=== PATIENT | male | born 1990 | race Two or more races ===

== ENCOUNTER 2016-10-31 12:24 | Inpatient (IN) | payer OTHER ==
[2016-10-31 13:52] VITALS: BMI 21.9
--- NOTE | 2016-10-31 14:22 | HP ---
Admission ROS S - HPI Allergies/Adverse Reactions: Allergies Allergy/AdvReac Type Severity Reaction Status Date / Time tomato Allergy Severe Vomiting Verified 06/25/16 11:24 carrot Allergy Vomiting Verified 08/07/16 14:54 No Known Drug Allergies Allergy Verified 08/07/16 14:54 rice Allergy Vomiting Verified 08/07/16 14:54 - Ebola screening Have you been sick,other than usual withdrawal symptoms: No Patient History - Patient Medical History Hx Anemia: No Hx Asthma: No Hx Chronic Obstructive Pulmonary Disease (COPD): No Hx Cardiac Disorders: No Hx Hypertension: No Hx Hypercholesterolemia: No HX Cerebrovascular Accident: No Hx Seizures: No Hx Diabetes: No Hx Gastrointestinal Disorders: No Hx Liver Disease: No Hx Genitourinary Disorders: No Hx Sexually Transmitted Disorders: No Hx Renal Disease (ESRD): No Hx Thyroid Disease: No Hx Human Immunodeficiency Virus (HIV): No (NEGATIVE HX mlast 2013) Hx Hepatitis C: No Hx Depression: No Hx Suicide Attempt: No (DENIES) Hx Bipolar Disorder: No Hx Schizophrenia: No - Patient Surgical History Past Surgical History: No Hx Neurologic Surgery: No Hx Cataract Extraction: No Hx Cardiac Surgery: No Hx Lung Surgery: No Hx Breast Surgery: No Hx Breast Biopsy: No Hx Abdominal Surgery: No Hx Appendectomy: No Hx Cholecystectomy: No Hx Genitourinary Surgery: No Hx Section: No Hx Orthopedic Surgery: No Anesthesia Reaction: No - PPD History Date: 06/27/16 Results: 0 mm - Smoking Cessation Smoking history: Current every day smoker Have you smoked in the past 12 months: Yes Aproximately how many cigarettes per day: 20 Hx Chewing Tobacco Use: No Family Disease History - Family Disease History Family Disease History: Diabetes: Grandparent (HTN-MATERNAL SIDE), Father (HTN) , Mother (HTN), Other: Grandparent, Father, Mother Admission Physical Exam S - Vital Signs Vital Signs: Vital Signs - 24 hr 10/31/16 13:49 Temperature 96.4 F L Pulse Rate 68 Respiratory 20 Rate Blood Pressure 123/73 Cleared for Admission BHS - Detox or Rehab S Level of Care: Medically Managed Detox Regimen/Protocol: Methadone S Breath Alcohol Content Breath Alcohol Content: 0 Urine Drug Screen - Control Is Test Valid: Yes - Results Drug Screen Negative: No Urine Drug Screen Results: RUBÉN-Cocaine, OPI-Opiates
[2016-10-31] MEDS ORDERED: LOPERAMIDE HCL 2 MG CAPSULE PO PRN (14:23)
[2016-10-31] MEDS ORDERED: guaiFENesin/D-METHORPHAN HB 10 ML UNIT-DOSE CUPS PO PRN (14:23)
[2016-10-31] MEDS ORDERED: IBUPROFEN 400 MG TABLET (FP) PO PRN (14:23)
[2016-10-31] MEDS ORDERED: ACETAMINOPHEN 325 MG TABLET (FP) PO PRN (14:23)
[2016-10-31] MEDS ORDERED: MAGNESIUM CITRATE 300 ML BOTTLE PO PRN (14:23)
[2016-10-31] MEDS ORDERED: MENTHOL/PHENOL 1 EACH UD MM PRN (14:23)
[2016-10-31] MEDS ORDERED: P-EPHED 60MG/TRIPROLIDI 2.5MG TABLET PO PRN (14:23)
[2016-10-31] MEDS ORDERED: MAGNESIUM HYDROX 2400MG/30ML ORAL SUSPENSION 30 ML CUP PO PRN (14:23)
[2016-10-31] MEDS ORDERED: MAG HYDROX/AL HYDROX/SIMETH 30 ML UNIT-DOSE CUP PO PRN (14:23)
--- NOTE | 2016-10-31 14:31 | HP ---
COWS - Scale Resting Pulse: 0= [place] 80 or Below Sweatin= Chills/Flushing Restless Observation: 1= Difficult to Sit Still Pupil Size: 1= Pupils >than Normal Bone or Joint Aches: 1= Mild Discomfort Runny Nose/ Eye Tearin= Nasal Congestion GI Upset > 30mins: 2= Nausea/Diarrhea Tremor Observation: 2= Slight Tremor Visible Yawning Observation: 1= 1-2x During Session Anxiety or Irritability: 2=Irritable/Anxious Goose Flesh Skin: 3=Piloerection COWS Score: 15 Admission ROS S - HPI Chief Complaint: heroin addicton, polysubstance use, mandated for inpatient detoxification and rehab by courts Allergies/Adverse Reactions: Allergies Allergy/AdvReac Type Severity Reaction Status Date / Time tomato Allergy Severe Vomiting Verified 06/25/16 11:24 carrot Allergy Vomiting Verified 08/07/16 14:54 No Known Drug Allergies Allergy Verified 08/07/16 14:54 rice Allergy Vomiting Verified 08/07/16 14:54 History of Present Illness: 26 yo m w h/o polysubstance use, heroin and cocaine dependence, signed out ama last year from [facility] is now mandated by human resources benefits coordinator to treatment which he wishe to complete including rehab, has not drunk for over 2 weeks but reports binge drinking pattern, heroin 2 bundles sniff sdaily last used this am, PMHx neg not on any medications, reports recent wt loos and anorexia from substance use. denies anypsychiatric illness or suicde attempts or suicidal ideation at present. Exam Limitations: No Limitations - Ebola screening Have you traveled outside of the country in the last 21 days: No Have you had contact with anyone from an Ebola affected area: No Have you been sick,other than usual withdrawal symptoms: No - Review of Systems Constitutional: Chills, Diaphoresis, Loss of Appetite, Malaise, Changes in sleep , Weakness, Unintentional Wgt. Loss EENT: reports: No Symptoms Reported, Nose Congestion (withdrwal sx) Patient History - Patient Medical History Hx Anemia: No Hx Asthma: No Hx Chronic Obstructive Pulmonary Disease (COPD): No Hx Cancer: No Hx Cardiac Disorders: No Hx Congestive Heart Failure: No Hx Hypertension: No Hx Hypercholesterolemia: No Hx Pacemaker: No HX Cerebrovascular Accident: No Hx Seizures: No Hx Dementia: No Hx Diabetes: No Hx Gastrointestinal Disorders: No Hx Liver Disease: No Hx Genitourinary Disorders: No Hx Sexually Transmitted Disorders: No Hx Renal Disease (ESRD): No Hx Thyroid Disease: No Hx Human Immunodeficiency Virus (HIV): No (NEGATIVE HX mlast 2013) Hx Hepatitis C: No Hx Depression: No Hx Suicide Attempt: No (DENIES) Hx Bipolar Disorder: No Hx Schizophrenia: No - Patient Surgical History Past Surgical History: No Hx Neurologic Surgery: No Hx Cataract Extraction: No Hx Cardiac Surgery: No Hx Lung Surgery: No Hx Breast Surgery: No Hx Breast Biopsy: No Hx Abdominal Surgery: No Hx Appendectomy: No Hx Cholecystectomy: No Hx Genitourinary Surgery: No Hx Section: No Hx Orthopedic Surgery: No Hx Hysterectomy: No Anesthesia Reaction: No - PPD History Previous Implant?: Yes Documented Results: Positive w/o proof Implanted On Prior [facility] Admission?: Yes Date: 06/27/16 Results: 0 mm PPD to be Administered?: No - Reproductive History Patient is a Female of Child Bearing Age (11 -55 yrs old): No Patient : No - Smoking Cessation Smoking history: Current every day smoker Have you smoked in the past 12 months: Yes Aproximately how many cigarettes per day: 20 Hx Chewing Tobacco Use: No Initiated information on smoking cessation: Yes 'Breaking Loose' booklet given: 10/31/16 - Substance & Tx. History Hx Alcohol Use: Yes Hx Substance Use: Yes Substance Use Type: Alcohol, Cocaine, Heroin, Opiates - Substances Abused Heroin Route: Inhalation Frequency: Daily Amount used: 1 bags Age of first use: 25 Date of Last Use: 10/30/16 Alcohol Frequency: 3-6 times per week Age of first use: 14 Date of Last Use: 10/17/16 Marijuana/Hashish Route: Smoking Frequency: Daily Amount used: $5/day Age of first use: 12 Date of Last Use: 10/10/16 Cocaine Route: Smoking Frequency: Daily Amount used: $600/day Age of first use: 15 Date of Last Use: 10/30/16 Family Disease History - Family Disease History Family Disease History: Diabetes: Grandparent (HTN-MATERNAL SIDE), Father (HTN) , Mother (HTN), Other: Grandparent, Father, Mother Admission Physical Exam BHS - Vital Signs Vital Signs: Vital Signs - 24 hr 10/31/16 13:49 Temperature 96.4 F L Pulse Rate 68 Respiratory 20 Rate Blood Pressure 123/73 - Physical General Appearance: Yes: Nourished, Appropriately Dressed, Mild Distress, Thin, Tremorous, Irritable, Sweating, Anxious HEENTM: Yes: EOMI, Hearing grossly Normal, Normal ENT Inspection, Normocephalic , Normal Voice, BETHEL, Nasal Congestion Respiratory: Yes: Within Normal Limits, Chest Non-Tender, Lungs Clear, Normal Breath Sounds, No Respiratory Distress, No Accessory Muscle Use Neck: Yes: Within Normal Limits, No masses,lesions,Nodules, Supple, Trachea in good position Breast: Yes: Breast Exam Deferred Cardiology: Yes: Within Normal Limits, Regular Rhythm, Regular Rate, S1, S2 Abdominal: Yes: Normal Bowel Sounds, Non Tender, Flat, Soft Genitourinary: Yes: Within Normal Limits Back: Yes: Muscle Spasm Musculoskeletal: Yes: full range of Motion, Gait Steady, Back pain (withdrawal sxd), Muscle Pain Extremities: Yes: Normal Capillary Refill, Normal Inspection, Normal Range of Motion, Non-Tender, Tremors Neurological: Yes: home care and home health aides teacher II-XII NML intact, Fully Oriented, Alert, Motor Strength 5/5, Normal Response, Depressed Affect Integumentary: Yes: Normal Color, Warm, Diaphoresis, Moist Lymphatic: Yes: Within Normal Limits - Addiitonal Findings: withdrawal sx present on admission - Diagnostic (1) Alcohol dependence with uncomplicated withdrawal Current Visit: No Status: Inactive (2) Cocaine dependence, uncomplicated Current Visit: Yes Status: Chronic (3) Nicotine dependence Current Visit: Yes Status: Chronic Qualifiers: Nicotine product type: cigarettes Substance use status: in withdrawal Qualified Code(s): F17.213 - Nicotine dependence, cigarettes, with withdrawal (4) Opioid dependence with withdrawal Current Visit: No Status: Acute (5) Weight loss Current Visit: Yes Status: Acute (6) Anorexia Current Visit: Yes Status: Acute (7) Insomnia Current Visit: Yes Status: Acute Qualifiers: Insomnia type: drug-induced Qualified Code(s): F19.982 - Other psychoactive substance use, unspecified with psychoactive substance-induced sleep disorder BHS Breath Alcohol Content Breath Alcohol Content: 0 Urine Drug Screen - Results Drug Screen Negative: No Urine Drug Screen Results: RUBÉN-Cocaine, OPI-Opiates
[2016-10-31] MEDS ORDERED: METHADONE HCL 10 MG TABLET (FOR DETOX USE ONLY) PO ONE ×2 (15:20→23:00)
[2016-10-31] MEDS: NICOTINE 21 MG/24 HOURS TOPICAL PATCH TD SCH (15:47)
[2016-10-31] MEDS: diazePAM 5 MG TABLET PO PRN ×2 (15:47→23:05)
--- NOTE | 2016-10-31 17:19 | CONSULT ---
[facility] Psychiatric Consult - Data Date of interview: 10/31/16 Admission source: [facility] Identifying data: Readmission to [facility] for this 26 y/o male seeking detox treatment on for alcohol,marijuana,heroin and cocaine ( crack) dependence.Patient is single,a father of one,homeless,unemployed and supported on food stamps. Substance Abuse History: - Smoking Cessation. Smoking history: Current every day smoker. Have you smoked in the past 12 months: Yes. Aproximately how many cigarettes per day: 20. Hx Chewing Tobacco Use: No. Initiated information on smoking cessation: Yes. 'Breaking Loose' booklet given: 10/31/16. - Substance & Tx. History. Hx Alcohol Use: Yes. Hx Substance Use: Yes. Substance Use Type : Alcohol, Cocaine, Heroin, Opiates. - Substances Abused. Heroin. Route: Inhalation. Frequency: Daily. Amount used: 1 bags. Age of first use: 25. Date of Last Use: 10/30/16. Alcohol. Frequency: 3-6 times per week. Age of first use: 14. Date of Last Use: 10/17/16. Marijuana/Hashish. Route: Smoking. Frequency: Daily. Amount used: $5/day. Age of first use: 12. Date of Last Use: 10/10/16. Cocaine. Route: Smoking. Frequency: Daily. Amount used: $600/day. Age of first use: 15. Date of Last Use: 10/30/16. Discussed with the patient in this interview.He confirmed this pattern of substance abuse. Medical History: Patient endorses good general health. Psychiatric History: Patient denies. Physical/Sexual Abuse/Trauma History: Patient denies. Additional Comment: Urine Drug Screen Results: RUBÉN-Cocaine, OPI-Opiates.Noted. Mental Status Exam - Mental Status Exam Alert and Oriented to: Time, Place, Person Cognitive Function: Good Patient Appearance: Well Groomed Mood: Nervous, Withdrawn, Anxious Affect: Mood Congruent Patient Behavior: Fatigued, Appropriate, Cooperative Speech Pattern: Clear Voice Loudness: Normal Thought Process: Goal Oriented Thought Disorder: Not Present Hallucinations: Denies Suicidal Ideation: Denies Homicidal Ideation: Denies Insight/Judgement: Poor Sleep: Poorly, Difficulty falling asleep Appetite: Fair Muscle strength/Tone: Normal Gait/Station: Normal Psychiatric Findings - Problem List ([place] 1, 2,3) (1) Cocaine dependence, uncomplicated Current Visit: Yes Status: Acute (2) Nicotine dependence Current Visit: Yes Status: Acute Qualifiers: Nicotine product type: cigarettes Substance use status: in withdrawal Qualified Code(s): F17.213 - Nicotine dependence, cigarettes, with withdrawal (3) Opioid dependence with withdrawal Current Visit: Yes Status: Acute (4) Insomnia Current Visit: Yes Status: Chronic Qualifiers: Insomnia type: drug-induced Qualified Code(s): F19.982 - Other psychoactive substance use, unspecified with psychoactive substance-induced sleep disorder - Initial Treatment Plan Initial Treatment Plan: Psychoeducation.Detoxification.Zolpidem 10 mg po hs prn.Patient is made aware of the risk of parasomnias.Observation.
[2016-10-31 20:57] LABS: URINE APPEARANCE CLOUDY; URINE BILIRUBIN NEGATIVE (NEGATIVE); URINE BLOOD NEGATIVE (NEGATIVE); URINE COLOR YELLOW; URINE GLUCOSE (UA) NEGATIVE (NEGATIVE); URINE KETONE NEGATIVE (NEGATIVE); URINE LEUK ESTERASE NEGATIVE (NEGATIVE); URINE NITRITE NEGATIVE (NEGATIVE); URINE PROTEIN NEGATIVE (NEGATIVE); URINE UROBILINOGEN 2.0 E.U/dl E.U./dl (0.2-1.0)
[2016-10-31] MEDS: THIAMINE HCL 100 MG TABLET (FP) PO SCH (22:11)
[2016-10-31] MEDS: diphenhydrAMINE HCL 50 MG CAPSULE PO PRN (22:11)
[2016-11-01] MEDS: diazePAM 5 MG TABLET PO PRN ×2 (05:46→22:12)
--- NOTE | 2016-11-01 09:34 | EKG ---
Test Reason : Blood Pressure : / mmHG Vent. Rate : 063 BPM Atrial Rate : 063 BPM P-R Int : 144 ms QRS Dur : 114 ms QT Int : 414 ms P-R-T Axes : 077 058 028 degrees QTc Int : 423 ms NORMAL SINUS RHYTHM POSSIBLE LEFT ATRIAL ENLARGEMENT INCOMPLETE RIGHT BUNDLE BRANCH BLOCK NO PREVIOUS ECGS AVAILABLE Confirmed by IVY BECERRIL MD ([id number]) on 11/01/2016 9:34:00 AM Referred By: Confirmed By:IVY BECERRIL MD
--- NOTE | 2016-11-01 09:57 | PN ---
BHS COWS - Scale Resting Pulse: 0= [place] 80 or Below Sweatin= Chills/Flushing Restless Observation: 1= Difficult to Sit Still Pupil Size: 1= Pupils >than Normal Bone or Joint Aches: 1= Mild Discomfort Runny Nose/ Eye Tearin= Nasal Congestion GI Upset > 30mins: 0= None Tremor Observation of Outstretched Hands: 1= Tremor [place], Not Seen Yawning Observation: 0= None Anxiety or Irritability: 1=Feels Anxious/Irritable Goose Flesh Skin: 0=Smooth Skin COWS Score: 7 BHS Progress Note (SOAP) Subjective: Sweats, anxiety, interrupted sleep Objective: 11/01/16 09:56 Vital Signs Temperature 97.3 F L 11/01/16 06:05 Pulse Rate 65 11/01/16 06:05 Respiratory Rate 16 11/01/16 06:05 Blood Pressure 107/65 11/01/16 06:05 O2 Sat by Pulse Oximetry (%) Laboratory Last Values Urine Color Yellow 10/31/16 18:00 Urine Appearance Cloudy 10/31/16 18:00 Urine pH 7.0 (5.0-8.0) 10/31/16 18:00 Ur Specific [place] 1.018 (1.001-1.035) 10/31/16 18:00 Urine Protein Negative (NEGATIVE) 10/31/16 18:00 Urine Glucose (UA) Negative (NEGATIVE) 10/31/16 18:00 Urine Ketones Negative (NEGATIVE) 10/31/16 18:00 Urine Blood Negative (NEGATIVE) 10/31/16 18:00 Urine Nitrite Negative (NEGATIVE) 10/31/16 18:00 Urine Bilirubin Negative (NEGATIVE) 10/31/16 18:00 Urine Urobilinogen 2.0 e.u/dl E.U./dl (0.2-1.0) 10/31/16 18:00 Ur Leukocyte Esterase Negative (NEGATIVE) 10/31/16 18:00 ua noted Assessment: 11/01/16 09:57 withdrawal sx Plan: continue detox
[2016-11-01] MEDS ORDERED: METHADONE HCL 10 MG TABLET (FOR DETOX USE ONLY) PO ONE (10:00)
[2016-11-01 10:34] LABS: MCH 30.4 pg (25.7-33.7); MCHC 33.4 g/dl (32.0-35.9); MEAN PLT VOLUME 9.2 fl (7.5-11.1); PLATELET COUNT 201 K/MM3 (134-434); RDW 13.5 % (11.9-15.9); WHITE BLOOD COUNT 4.1 K/mm3 (4.0-10.0)
[2016-11-01] MEDS: PRENATAL VITAMINS W/ FOLIC ACID TABLET (FP) PO SCH (10:37)
[2016-11-01] MEDS: NICOTINE 21 MG/24 HOURS TOPICAL PATCH TD SCH (10:38)
[2016-11-01 11:45] LABS: ALBUMIN 4.1 g/dl (3.4-5.0); ANION GAP 11 (8-16); CALCIUM 8.7 mg/dL (8.5-10.1); CO2 29 mmol/L (21-32); GLUCOSE,RANDOM 89 mg/dL (74-106); SGOT/AST 14 U/L (15-37); SGPT/ALT 20 U/L (12-78)
[2016-11-01 11:47] LABS: ALK PHOS 69 U/L (45-117); BILIRUBIN,TOTAL 0.6 mg/dL (0.2-1.0); TOT PROT 7.6 g/dl (6.4-8.2)
[2016-11-01] MEDS: THIAMINE HCL 100 MG TABLET (FP) PO SCH (22:12)
[2016-11-01] MEDS: hydrOXYzine PAMOATE 50 MG CAPSULE (FP) PO PRN (22:13)
[2016-11-01] MEDS: NICOTINE POLACRILEX 4 MG GUM BUC PRN (22:39)
[2016-11-02] MEDS: diazePAM 5 MG TABLET PO PRN ×3 (05:44→22:11)
[2016-11-02] MEDS ORDERED: METHADONE HCL 5 MG TABLET (FOR DETOX USE ONLY) PO ONE (10:00)
[2016-11-02] MEDS: PRENATAL VITAMINS W/ FOLIC ACID TABLET (FP) PO SCH (10:11)
[2016-11-02] MEDS: NICOTINE 21 MG/24 HOURS TOPICAL PATCH TD SCH (10:11)
--- NOTE | 2016-11-02 13:00 | PN ---
BHS COWS - Scale Resting Pulse: 0= [place] 80 or Below Sweatin=Flushed/Facial Moisture Restless Observation: 3= Extraneous Movement Pupil Size: 0= Normal to Room Light Bone or Joint Aches: 2= Severe Diffuse Aches Runny Nose/ Eye Tearin= Runny Nose/Eyes GI Upset > 30mins: 2= Nausea/Diarrhea Tremor Observation of Outstretched Hands: 2= Slight Tremor Visible Yawning Observation: 0= None Anxiety or Irritability: 2=Irritable/Anxious Goose Flesh Skin: 0=Smooth Skin COWS Score: 15 BHS Progress Note (SOAP) Subjective: Anxious, restless, interrupted sleep, nausea, sweating Objective: 11/02/16 12:58 Last Vital Signs Temp Pulse Resp BP Pulse Ox 96.8 F L 77 18 120/73 11/02/16 12:57 11/02/16 12:57 11/02/16 12:57 11/02/16 12:57 Laboratory Tests 10/31/16 11/01/16 11/01/16 18:00 06:10 06:10 WBC 4.1 D RBC 5.01 Hgb 15.2 Hct 45.6 MCV 91.0 MCHC 33.4 RDW 13.5 Plt Count 201 MPV 9.2 Sodium 142 Potassium 4.2 Chloride 102 Carbon Dioxide 29 Anion Gap 11 BUN 12 Creatinine 1.0 Creat Clearance w eGFR > 60 Random Glucose 89 D Calcium 8.7 Total Bilirubin 0.6 AST 14 L D ALT 20 D Alkaline Phosphatase 69 Total Protein 7.6 Albumin 4.1 Urine Color Yellow Urine Appearance Cloudy Urine pH 7.0 Ur Specific [place] 1.018 Urine Protein Negative Urine Glucose (UA) Negative Urine Ketones Negative Urine Blood Negative Urine Nitrite Negative Urine Bilirubin Negative Urine Urobilinogen 2.0 e.u/dl Ur Leukocyte Esterase Negative RPR Titer 11/01/16 06:10 WBC RBC Hgb Hct MCV MCHC RDW Plt Count MPV Sodium Potassium Chloride Carbon Dioxide Anion Gap BUN Creatinine Creat Clearance w eGFR Random Glucose Calcium Total Bilirubin AST ALT Alkaline Phosphatase Total Protein Albumin Urine Color Urine Appearance Urine pH Ur Specific [place] Urine Protein Urine Glucose (UA) Urine Ketones Urine Blood Urine Nitrite Urine Bilirubin Urine Urobilinogen Ur Leukocyte Esterase RPR Titer Nonreactive Labs noted Assessment: 11/02/16 12:59 Withdrawal symptoms Plan: Continue detox
[2016-11-02] MEDS: NICOTINE POLACRILEX 4 MG GUM BUC PRN (17:20)
[2016-11-02] MEDS: THIAMINE HCL 100 MG TABLET (FP) PO SCH (22:11)
[2016-11-02] MEDS: hydrOXYzine PAMOATE 50 MG CAPSULE (FP) PO PRN (22:12)
[2016-11-03] MEDS: diazePAM 5 MG TABLET PO PRN (05:33)
[2016-11-03] MEDS ORDERED: METHADONE HCL 5 MG TABLET (FOR DETOX USE ONLY) PO ONE (10:00)
[2016-11-03] MEDS: PRENATAL VITAMINS W/ FOLIC ACID TABLET (FP) PO SCH (10:19)
[2016-11-03] MEDS: NICOTINE 21 MG/24 HOURS TOPICAL PATCH TD SCH (10:19)
--- NOTE | 2016-11-03 11:05 | PN ---
BHS Progress Note (SOAP) Subjective: SWEATING,INTERRUPTED SLEEP,RESTLESS Objective: 11/03/16 11:04 Vital Signs - 8 hr 11/03/16 11/03/16 11/03/16 03:30 06:05 09:34 Temperature 97.8 F 96.6 F L Pulse Rate 74 83 Respiratory 18 16 20 Rate Blood Pressure 107/71 122/72 Laboratory Tests 10/31/16 11/01/16 11/01/16 18:00 06:10 06:10 WBC 4.1 D RBC 5.01 Hgb 15.2 Hct 45.6 MCV 91.0 MCHC 33.4 RDW 13.5 Plt Count 201 MPV 9.2 Sodium 142 Potassium 4.2 Chloride 102 Carbon Dioxide 29 Anion Gap 11 BUN 12 Creatinine 1.0 Creat Clearance w eGFR > 60 Random Glucose 89 D Calcium 8.7 Total Bilirubin 0.6 AST 14 L D ALT 20 D Alkaline Phosphatase 69 Total Protein 7.6 Albumin 4.1 Urine Color Yellow Urine Appearance Cloudy Urine pH 7.0 Ur Specific [place] 1.018 Urine Protein Negative Urine Glucose (UA) Negative Urine Ketones Negative Urine Blood Negative Urine Nitrite Negative Urine Bilirubin Negative Urine Urobilinogen 2.0 e.u/dl Ur Leukocyte Esterase Negative RPR Titer 11/01/16 06:10 WBC RBC Hgb Hct MCV MCHC RDW Plt Count MPV Sodium Potassium Chloride Carbon Dioxide Anion Gap BUN Creatinine Creat Clearance w eGFR Random Glucose Calcium Total Bilirubin AST ALT Alkaline Phosphatase Total Protein Albumin Urine Color Urine Appearance Urine pH Ur Specific [place] Urine Protein Urine Glucose (UA) Urine Ketones Urine Blood Urine Nitrite Urine Bilirubin Urine Urobilinogen Ur Leukocyte Esterase RPR Titer Nonreactive LABS NOTED Assessment: 11/03/16 11:04 WITHDRAWAL SX. Plan: CONTINUE DETOX
[2016-11-03] MEDS: NICOTINE POLACRILEX 4 MG GUM BUC PRN ×2 (13:44→21:40)
[2016-11-03] MEDS ORDERED: ZOLPIDEM TARTRATE 5 MG TABLET PO PRN (13:48)
[2016-11-03] MEDS: hydrOXYzine PAMOATE 50 MG CAPSULE (FP) PO PRN ×2 (14:54→21:39)
[2016-11-03] MEDS ORDERED: ZOLPIDEM TARTRATE 10 MG TABLET (PARK CARE ONLY) PO PRN (22:00)
[2016-11-03] MEDS: THIAMINE HCL 100 MG TABLET (FP) PO SCH (22:08)
[2016-11-03] MEDS: PANTOPRAZOLE 20 MG TABLET (FP) PO SCH (23:38)
--- NOTE | 2016-11-03 23:57 | PN ---
[facility] Progress Note Note: PATIENT ASSESSED IN HIS ROOM. HE WAS COMPLAINING OF ABDOMINAL PAIN, DIARRHEA X 2 DAYS AND SPITTING OUT BLOOD. + BS X 4; TENDERNESS ON PALPATION. RN ADMINISTERED IMMODIUM AND PROTONIX PRESCRIBED. CHEST X-RAY ORDERED FOR THE MORNING.
[2016-11-04] MEDS: diphenhydrAMINE HCL 50 MG CAPSULE PO PRN (00:43)
[2016-11-04 06:18] VITALS: BP 109/60; PULSE 57; TEMP 96.7
[2016-11-04] MEDS: PRENATAL VITAMINS W/ FOLIC ACID TABLET (FP) PO SCH (09:51)
[2016-11-04] MEDS: PANTOPRAZOLE 20 MG TABLET (FP) PO SCH (09:52)
[2016-11-04] MEDS ORDERED: METHADONE HCL 10 MG TABLET (FOR DETOX USE ONLY) PO ONE (10:00)
--- NOTE | 2016-11-04 10:18 | DS ---
[facility] Detox Discharge Summary Admission Date: 10/31/16 Discharge Date: 11/04/16 - History Present History: Cocaine Dependence, Opioid Dependence Pertinent Past History: insomnia - Physical Exam Results Vital Signs: Vital Signs Temperature 96.7 F L 11/04/16 06:17 Pulse Rate 57 L 11/04/16 06:17 Respiratory Rate 18 11/04/16 06:17 Blood Pressure 109/60 11/04/16 06:17 O2 Sat by Pulse Oximetry (%) Pertinent Admission Physical Exam Findings: withdrawal sx. Laboratory Last Values WBC 4.1 K/mm3 (4.0-10.0) D 11/01/16 06:10 RBC 5.01 M/mm3 (4.00-5.60) 11/01/16 06:10 Hgb 15.2 GM/dL (11.7-16.9) 11/01/16 06:10 Hct 45.6 % (35.4-49) 11/01/16 06:10 MCV 91.0 fl (80-96) 11/01/16 06:10 MCHC 33.4 g/dl (32.0-35.9) 11/01/16 06:10 RDW 13.5 % (11.9-15.9) 11/01/16 06:10 Plt Count 201 K/MM3 (134-434) 11/01/16 06:10 MPV 9.2 fl (7.5-11.1) 11/01/16 06:10 Sodium 142 mmol/L (136-145) 11/01/16 06:10 Potassium 4.2 mmol/L (3.5-5.1) 11/01/16 06:10 Chloride 102 mmol/L (98-107) 11/01/16 06:10 Carbon Dioxide 29 mmol/L (21-32) 11/01/16 06:10 Anion Gap 11 (8-16) 11/01/16 06:10 BUN 12 mg/dL (7-18) 11/01/16 06:10 Creatinine 1.0 mg/dL (0.7-1.3) 11/01/16 06:10 Creat Clearance w eGFR > 60 (>60) 11/01/16 06:10 Random Glucose 89 mg/dL (74-106) D 11/01/16 06:10 Calcium 8.7 mg/dL (8.5-10.1) 11/01/16 06:10 Total Bilirubin 0.6 mg/dL (0.2-1.0) 11/01/16 06:10 AST 14 U/L (15-37) L D 11/01/16 06:10 ALT 20 U/L (12-78) D 11/01/16 06:10 Alkaline Phosphatase 69 U/L (45-117) 11/01/16 06:10 Total Protein 7.6 g/dl (6.4-8.2) 11/01/16 06:10 Albumin 4.1 g/dl (3.4-5.0) 11/01/16 06:10 Urine Color Yellow 10/31/16 18:00 Urine Appearance Cloudy 10/31/16 18:00 Urine pH 7.0 (5.0-8.0) 10/31/16 18:00 Ur Specific [place] 1.018 (1.001-1.035) 10/31/16 18:00 Urine Protein Negative (NEGATIVE) 10/31/16 18:00 Urine Glucose (UA) Negative (NEGATIVE) 10/31/16 18:00 Urine Ketones Negative (NEGATIVE) 10/31/16 18:00 Urine Blood Negative (NEGATIVE) 10/31/16 18:00 Urine Nitrite Negative (NEGATIVE) 10/31/16 18:00 Urine Bilirubin Negative (NEGATIVE) 10/31/16 18:00 Urine Urobilinogen 2.0 e.u/dl E.U./dl (0.2-1.0) 10/31/16 18:00 Ur Leukocyte Esterase Negative (NEGATIVE) 10/31/16 18:00 RPR Titer Nonreactive (NONREACTIVE) 11/01/16 06:10 labs noted - Treatment Hospital Course: Detoxed Safely, Discharged Condition Good - Medication Discharge Medications: Ambulatory Orders NK [No Known Home Medication] 08/07/16 - Diagnosis (1) Cocaine dependence, uncomplicated Current Visit: Yes Status: Acute (2) Nicotine dependence Current Visit: Yes Status: Acute Qualifiers: Nicotine product type: cigarettes Substance use status: in withdrawal Qualified Code(s): F17.213 - Nicotine dependence, cigarettes, with withdrawal (3) Opioid dependence with withdrawal Current Visit: Yes Status: Acute (4) Insomnia Current Visit: Yes Status: Chronic Qualifiers: Insomnia type: drug-induced Qualified Code(s): F19.982 - Other psychoactive substance use, unspecified with psychoactive substance-induced sleep disorder - AMA Did Patient Leave Against Medical Advice: No
[2016-11-05] MEDS ORDERED: METHADONE HCL 5 MG TABLET (FOR DETOX USE ONLY) PO ONE (06:00)
== END 2016-11-04 10:29 | disposition home or self-care (01) | DRG 773 ==
LOC: YASAS 12:24 → Y3N 15:00
PROVIDERS: ADMIT Internal Medicine; ATTEND Internal Medicine
PROC: HZ2ZZZZ Detoxification Services for Substance Abuse Treatment (ICD-10-PCS; principal; 2016-11-04)
DX: F11.23 Opioid dependence with withdrawal (principal); F14.20 Cocaine dependence, uncomplicated; F17.213 Nicotine dependence, cigarettes, with withdrawal; F19.282 Other psychoactive substance dependence with psychoactive substance-induced sleep disorder
CPT/HCPCS: 36415; 80053; 81003; 85027; 86593; 93005; 93010

== ENCOUNTER 2019-11-21 12:59 | Inpatient (IN) | payer OTHER ==
--- NOTE | 2019-11-21 13:53 | BHS.RME ---
Substance Use & Tx History - Substance Use History Opiates (Heroin) Substance amount: 1-2 bundles Frequency of use: Daily Substance route: Inhalation (ex: sniffing or snorting), Injection (ex: intravenous or skin popping) Date of Last Use: 11/21/19 Cocaine (Crack) Substance amount: 1-1.5 gram Frequency of use: Less than 3 times per week Date of Last Use: 11/21/19 Opiates (Other) Substance amount: 5-6 bags Fentanyl Substance route: Inhalation (ex: sniffing or snorting), Injection (ex: intravenous or skin popping) Date of Last Use: 11/19/19 Nicotine Substance amount: 1 ppd Frequency of use: Daily Substance route: Smoking Date of Last Use: 11/21/19 Physical/Psych/Mental Status - Behavior Eye Contact: Normal - Cooperativeness Cooperativeness: Cooperative - Thinking Thought Processes: Loosened - Physical Health Problems Is patient presently having any pain?: No Does patient presently have any injuries (include location): No Does patient currently have a fever: No COWS - Scale Resting Pulse: 1= [place] 81-100 Sweatin= Beads of Sweat on Face Restless Observation: 1= Difficult to Sit Still Pupil Size: 0= Normal to Room Light Bone or Joint Aches: 1= Mild Discomfort Runny Nose/ Eye Tearin= Nasal Congestion GI Upset > 30mins: 0= None Tremor Observation: 2= Slight Tremor Visible Yawning Observation: 0= None Anxiety or Irritability: 1=Feels Anxious/Irritable Goose Flesh Skin: 0=Smooth Skin COWS Score: 10 CIWA Nausea/Vomitin-No Nausea/No Vomiting Muscle Tremors: 4-Moderate,w/Arms Extend Anxiety: 1-Mildly Anxious Agitation: 1-Slight > Activity Paroxysmal Sweats: 4-Forehead w/Sweat Beads Orientation: 0-Oriented Tacttile Disturbances: 0-None Auditory Disturbances: 0-None Visual Disturbances: 0-None Headache: 0-None Present CIWA-Ar Total Score: 10
--- NOTE | 2019-11-21 14:51 | HP ---
COWS - Scale Resting Pulse: 1= ID [id number] Sweatin= Beads of Sweat on Face Restless Observation: 1= Difficult to Sit Still Pupil Size: 0= Normal to Room Light Bone or Joint Aches: 1= Mild Discomfort Runny Nose/ Eye Tearin= Nasal Congestion GI Upset > 30mins: 0= None Tremor Observation: 2= Slight Tremor Visible Yawning Observation: 0= None Anxiety or Irritability: 1=Feels Anxious/Irritable Goose Flesh Skin: 0=Smooth Skin COWS Score: 10 CIWA Score Nausea/Vomitin-No Nausea/No Vomiting Muscle Tremors: 4-Moderate,w/Arms Extend Anxiety: 1-Mildly Anxious Agitation: 1-Slight > Activity Paroxysmal Sweats: 4-Forehead w/Sweat Beads Orientation: 0-Oriented Tacttile Disturbances: 0-None Auditory Disturbances: 0-None Visual Disturbances: 0-None Headache: 0-None Present CIWA-Ar Total Score: 10 - Admission Criteria OASAS Guidelines: Admission for Medically Managed Detox: Requires at least one of the followin. CIWA greater than 12 2. Seizures within the past 24 hours 3. Delirium tremens within the past 24 hours 4. Hallucinations within the past 24 hours 5. Acute intervention needed for co occurring medical disorder 6. Acute intervention needed for co occurring psychiatric disorder 7. Severe withdrawal that cannot be handled at a lower level of care (continued vomiting, continued diarrhea, abnormal vital signs) requiring intravenous medication and/or fluids 8. Admitting History and Physical - Admission Chief Complaint: Mr. Gallardo presents to [facility] stating " I want to get clean, detox from heroin". History of Present Illness: Mr. Gallardo presents to [facility] stating " I want to get clean, detox from heroin ". He is a 29 yo gentleman who was last admitted here October of 2016. He was at [facility] one month ago, did not complete, had an argument and left. Relapsed soon after leaving. PMH: abscess right forearm 2 weeks ago PSH; none Psych: none Substance use history Heroin: first use at the age of 24 y, last use today, quantity: 10-15 bags daily , IV. No ODs. Has Narcan at home. Was in a methadone program summer, no longer in program cocaine: first use age 25y, last use yesterday, 1.5 - 2 g bi weekly, sniff, smokes Fentanyl: first use ag 28y,. last use 2 days ago, 5 to 6 bags once or twice per month, injects or inhales Xanax: distant past, was twice per month, first use age 25 y Nicotine: started age 12, last use today, 1 ppd Denies: alcohol, marijuana Appropriate for Detox: high risk relapse, AMA one month ago - Smoking History Smoking history: Current every day smoker Have you smoked in the past 12 months: Yes Aproximately how many cigarettes per day: 20 - Alcohol/Substance Use Hx Alcohol Use: Yes Admission [facility] Allergies/Adverse Reactions: Allergies Allergy/AdvReac Type Severity Reaction Status Date / Time tomato Allergy Severe Vomiting Verified 06/25/16 11:24 carrot Allergy Vomiting Verified 08/07/16 14:54 No Known Drug Allergies Allergy Verified 08/07/16 14:54 rice Allergy Vomiting Verified 08/07/16 14:54 Exam Limitations: No Limitations - Ebola screening Have you traveled outside of the country in the last 21 days: No Have you had contact with anyone from an Ebola affected area: No Have you been sick,other than usual withdrawal symptoms: No Do you have a fever: No - Review of Systems Constitutional: No Symptoms Reported EENT: reports: No Symptoms Reported Respiratory: reports: No Symptoms reported Cardiac: reports: No Symptoms Reported GI: reports: No Symptoms Reported : reports: No Symptoms Reported Musculoskeletal: reports: No Symptoms Reported Integumentary: reports: No Symptoms Reported Neuro: reports: No Symptoms reported Endocrine: reports: No Symptoms Reported Hematology: reports: No Symptoms Reported Psychiatric: reports: No Sypmtoms Reported Patient History - Patient Medical History Hx Anemia: No Hx Asthma: No Hx Chronic Obstructive Pulmonary Disease (COPD): No Hx Cancer: No Hx Cardiac Disorders: No Hx Congestive Heart Failure: No Hx Hypertension: No Hx Hypercholesterolemia: No Hx Pacemaker: No HX Cerebrovascular Accident: No Hx Seizures: No Hx Dementia: No Hx Diabetes: No Hx Gastrointestinal Disorders: No Hx Liver Disease: No Hx Genitourinary Disorders: No Hx Sexually Transmitted Disorders: No Hx Renal Disease (ESRD): No Hx Thyroid Disease: No Hx Human Immunodeficiency Virus (HIV): No (NEGATIVE HX, last tested October 2019 ) Hx Hepatitis C: No Hx Depression: No Hx Suicide Attempt: No (DENIES) Hx Bipolar Disorder: No Hx Schizophrenia: No Other Medical History: right forearm abscess early 2019 - Patient Surgical History Past Surgical History: No Hx Neurologic Surgery: No Hx Cataract Extraction: No Hx Cardiac Surgery: No Hx Lung Surgery: No Hx Breast Surgery: No Hx Breast Biopsy: No Hx Abdominal Surgery: No Hx Appendectomy: No Hx Cholecystectomy: No Hx Genitourinary Surgery: No Hx Section: No Hx Orthopedic Surgery: No Hx Hysterectomy: No Other Surgical History: abscess I & D Anesthesia Reaction: No - PPD History Date: 06/27/16 Results: 0 mm - Smoking Cessation Smoking history: Current every day smoker Have you smoked in the past 12 months: Yes Aproximately how many cigarettes per day: 20 Hx Chewing Tobacco Use: No Initiated information on smoking cessation: Yes 'Breaking Loose' booklet given: 11/21/19 - Substances abused Heroin Substance route: Injection Frequency: Daily Amount used: 10-15 bags Age of first use: 24 Date of last use: 11/21/19 Cocaine Substance route: Inhalation Frequency: 1-2 times per week Amount used: 1.5 - 2 grams Age of first use: 25 Date of last use: 11/20/19 Other Other (specify): Fentanyl Substance route: Inhalation Frequency: 1-3 times last 30 days Amount used: 5-6 bags Age of first use: 28 Date of last use: 11/19/19 Admission Physical Exam [facility] - Physical General Appearance: Yes: Within Normal Limits HEENTM: Yes: Other (dry flakey) Respiratory: Yes: Lungs Clear, Normal Breath Sounds Neck: Yes: Within Normal Limits Breast: Yes: Breast Exam Deferred Cardiology: Yes: Regular Rate, S1, S2 Abdominal: Yes: Normal Bowel Sounds, Non Tender, Flat, Soft Genitourinary: Yes: Other (deferred) Back: Yes: Normal Inspection Musculoskeletal: Yes: Within Normal Limits Extremities: Yes: Within Normal Limits Neurological: Yes: Normal Response Integumentary: Yes: Track Garcia (no signs of skin infection) Cleared for Admission S - Detox or Rehab [facility] Level of Care: Medically Managed Breathalyzer - Breathalyzer Breathalyzer: 0 Urine Drug Screen - Test Device Lot number: [id number] Expiration date: 08/29/21 - Control Is test valid?: Yes - Results Drug screen NEGATIVE: No Urine drug screen results: RUBÉN-Cocaine, FEN-Fentanyl, MOP-Opiates Inpatient Rehab Admission - Rehab Decision to Admit Inpatient rehab admission?: No
[2019-11-21] MEDS ORDERED: MENTHOL/PHENOL 1 EACH UD MM PRN (15:04)
[2019-11-21] MEDS ORDERED: ACETAMINOPHEN 325 MG TABLET (FP) PO PRN (15:04)
[2019-11-21] MEDS ORDERED: BISMUTH SUBSALICYLATE 524 MG/30 ML UD PO PRN (15:04)
[2019-11-21] MEDS ORDERED: MAGNESIUM CITRATE 300 ML BOTTLE PO PRN (15:04)
[2019-11-21] MEDS ORDERED: cloNIDine HCL 0.1 MG TABLET PO PRN (15:04)
[2019-11-21] MEDS ORDERED: MAGNESIUM HYDROX 2400MG/30ML ORAL SUSPENSION 30 ML CUP PO PRN (15:04)
[2019-11-21] MEDS ORDERED: MAG HYDROX/AL HYDROX/SIMETH 30 ML UNIT-DOSE CUP PO PRN (15:04)
[2019-11-21 15:37] VITALS: BMI 21.2
[2019-11-21] MEDS ORDERED: METHADONE HCL 10 MG TABLET (FOR DETOX USE ONLY) PO ONE (16:15)
[2019-11-21] MEDS: METHOCARBAMOL 500 MG TABLET PO PRN (22:19)
[2019-11-21] MEDS: THIAMINE HCL 100 MG TABLET (FP) PO SCH (22:20)
[2019-11-21] MEDS: MELATONIN 5 MG TABLETS PO PRN (22:20)
[2019-11-22] MEDS: METHOCARBAMOL 500 MG TABLET PO PRN ×3 (04:15→18:09)
[2019-11-22] MEDS: IBUPROFEN 400 MG TABLET (FP) PO PRN ×2 (07:17→15:02)
[2019-11-22] MEDS ORDERED: METHADONE HCL 5 MG TABLET (FOR DETOX USE ONLY) ONE (08:40)
[2019-11-22] MEDS ORDERED: METHADONE HCL 10 MG TABLET (FOR DETOX USE ONLY) ONE (08:41)
[2019-11-22] MEDS ORDERED: METHADONE (DETOX) 20 MG, METHADONE (DETOX) 5 MG PO ONE (10:00)
[2019-11-22] MEDS: PRENATAL VITAMINS W/ FOLIC ACID TABLET (FP) PO SCH (11:06)
--- NOTE | 2019-11-22 11:34 | PN ---
[facility] COWS - Scale Resting Pulse: 0= [place] 80 or Below Sweatin= No chills or Flushing Restless Observation: 1= Difficult to Sit Still Pupil Size: 1= Pupils >than Normal Bone or Joint Aches: 2= Severe Diffuse Aches Runny Nose/ Eye Tearin= Runny Nose/Eyes GI Upset > 30mins: 2= Nausea/Diarrhea Tremor Observation of Outstretched Hands: 2= Slight Tremor Visible Yawning Observation: 2= >3x During Session Anxiety or Irritability: 2=Irritable/Anxious Goose Flesh Skin: 0=Smooth Skin COWS Score: 14 [facility] Progress Note (SOAP) Subjective: alert,irritable,anxious,interrupted sleep,pain in the body and back,tremor Objective: 11/22/19 11:31 Vital Signs Temperature 98.2 F 11/22/19 09:18 Pulse Rate 72 11/22/19 09:18 Respiratory Rate 18 11/22/19 09:18 Blood Pressure 107/56 L 11/22/19 09:18 O2 Sat by Pulse Oximetry (%) 11/22/19 11:32 labs pending Assessment: 11/22/19 11:32 withdrawal symptom Plan: continue detox methadone regimen,add valium 10 mgs po q 4hrs prn for withdrawal for 72 hrs
[2019-11-22] MEDS ORDERED: PNEUMOCOCCAL 23 VACCINE 0.5 ML VIAL IM ONE (12:00)
[2019-11-22] MEDS ORDERED: PNEUMOC 13-VAL CONJ-DIP CRM/PF 0.5 ML DISP.SYRIN IM ONE (12:00)
[2019-11-22] MEDS ORDERED: FLU VACCINE QUAD 60 MCG/0.5 ML (MDV 19-20) IM ONE (12:00)
[2019-11-22 12:42] LABS: HEMATOCRIT 36.7 % (35.4-49); HEMOGLOBIN 12.1 GM/dL (11.7-16.9); MCH 28.7 pg (25.7-33.7); MCHC 32.9 g/dl (32.0-35.9); MEAN CELL VOLUME 87.4 fl (80-96); MEAN PLT VOLUME 8.1 fl (7.5-11.1); PLATELET COUNT 268 K/MM3 (134-434); RBC 4.19 M/mm3 (4.00-5.60); RDW 15.1 % (11.9-15.9); WHITE BLOOD COUNT 6.9 K/mm3 (4.0-10.0)
[2019-11-22 12:55] LABS: ALBUMIN 3.1 g/dl (3.4-5.0); BILIRUBIN,TOTAL 0.6 mg/dL (0.2-1); BLOOD UREA NITROGEN 10.8 mg/dL (7-18); CALCIUM 8.3 mg/dL (8.5-10.1); CREATININE 0.7 mg/dL (0.55-1.3); TOT PROT 7.5 g/dl (6.4-8.2)
[2019-11-22] MEDS: ACETAMINOPHEN 325 MG TABLET (FP) PO PRN (18:09)
[2019-11-22] MEDS: hydrOXYzine PAMOATE 25 MG CAPSULE (FP) PO PRN (22:07)
[2019-11-22] MEDS: THIAMINE HCL 100 MG TABLET (FP) PO SCH (22:07)
[2019-11-23] MEDS: ACETAMINOPHEN 325 MG TABLET (FP) PO PRN ×2 (00:47→07:00)
[2019-11-23] MEDS: METHOCARBAMOL 500 MG TABLET PO PRN ×4 (00:47→22:38)
[2019-11-23] MEDS: MELATONIN 5 MG TABLETS PO PRN ×2 (00:49→21:47)
[2019-11-23] MEDS: diazePAM 5 MG TABLET PO PRN ×2 (03:17→19:24)
[2019-11-23] MEDS: PRENATAL VITAMINS W/ FOLIC ACID TABLET (FP) PO SCH (09:12)
[2019-11-23] MEDS: IBUPROFEN 400 MG TABLET (FP) PO PRN ×3 (09:16→22:37)
[2019-11-23] MEDS ORDERED: METHADONE HCL 10 MG TABLET (FOR DETOX USE ONLY) PO ONE (10:00)
--- NOTE | 2019-11-23 10:59 | PN ---
S CIWA - CIWA Score Nausea/Vomitin-Mild Nausea/No Vomiting Muscle Tremors: 1-None Visible, but [place] Anxiety: 2 Agitation: 1-Slight > Activity Paroxysmal Sweats: 3 Orientation: 0-Oriented Tacttile Disturbances: 2-Mild Itch/Numbness/Burn Auditory Disturbances: 0-None Visual Disturbances: 0-None Headache: 0-None Present CIWA-Ar Total Score: 10 [facility] Progress Note (SOAP) Subjective: interrupted sleep, sweats, shakes, stomach aches , lbp Objective: 11/23/19 10:55 Vital Signs Temperature 98.1 F 11/23/19 06:34 Pulse Rate 64 11/23/19 06:34 Respiratory Rate 16 11/23/19 06:34 Blood Pressure 104/53 L 11/23/19 06:34 O2 Sat by Pulse Oximetry (%) Laboratory Tests 11/22/19 11/22/19 11/22/19 08:50 08:50 08:50 WBC 6.9 RBC 4.19 Hgb 12.1 Hct 36.7 D MCV 87.4 MCH 28.7 MCHC 32.9 RDW 15.1 D Plt Count 268 D MPV 8.1 D Sodium 139 Potassium 4.0 Chloride 105 Carbon Dioxide 27 Anion Gap 7 L BUN 10.8 Creatinine 0.7 Est GFR (CKD-EPI)AfAm 146.77 Est GFR (CKD-EPI)NonAf 126.64 Random Glucose 138 H Calcium 8.3 L Total Bilirubin 0.6 AST 129 H ALT 263 H Alkaline Phosphatase 105 Total Protein 7.5 Albumin 3.1 L RPR Titer Nonreactive pt is aox3 ambulating , anxious Assessment: 11/23/19 10:56 withdrawal sx's elevated transaminases Plan: cont. detox increase fluids repeat sgot/sgpt d/c tylenol motrin prn
[2019-11-23] MEDS: hydrOXYzine PAMOATE 25 MG CAPSULE (FP) PO PRN (21:46)
[2019-11-23] MEDS: THIAMINE HCL 100 MG TABLET (FP) PO SCH (21:47)
[2019-11-24] MEDS: diazePAM 5 MG TABLET PO PRN ×2 (03:30→07:43)
[2019-11-24] MEDS: IBUPROFEN 400 MG TABLET (FP) PO PRN ×2 (04:48→11:01)
[2019-11-24] MEDS: METHOCARBAMOL 500 MG TABLET PO PRN (04:51)
[2019-11-24] MEDS: hydrOXYzine PAMOATE 25 MG CAPSULE (FP) PO PRN (05:25)
[2019-11-24] MEDS ORDERED: METHADONE HCL 10 MG TABLET (FOR DETOX USE ONLY) ONE (09:48)
[2019-11-24] MEDS ORDERED: METHADONE HCL 5 MG TABLET (FOR DETOX USE ONLY) ONE (09:48)
[2019-11-24] MEDS ORDERED: cloNIDine HCL 0.1 MG TABLET PO PRN (09:55)
--- NOTE | 2019-11-24 09:58 | PN ---
[facility] COWS - Scale Resting Pulse: 0= [place] 80 or Below Sweatin= Chills/Flushing Restless Observation: 1= Difficult to Sit Still Pupil Size: 0= Normal to Room Light Bone or Joint Aches: 2= Severe Diffuse Aches Runny Nose/ Eye Tearin= Nasal Congestion GI Upset > 30mins: 1= Stomach Cramp Tremor Observation of Outstretched Hands: 1= Tremor [place], Not Seen Yawning Observation: 0= None Anxiety or Irritability: 1=Feels Anxious/Irritable Goose Flesh Skin: 0=Smooth Skin COWS Score: 8 [facility] Progress Note (SOAP) Subjective: pt states has a lot of body aches, here for heroin detox, on methadone O: Vital Signs - 24 hr 11/23/19 11/23/19 11/23/19 14:00 16:26 21:25 Temperature 99.0 F 98.1 F 98.4 F Pulse Rate 66 59 L 60 Respiratory 18 19 18 Rate Blood Pressure 126/64 120/63 109/54 L 11/24/19 05:37 Temperature 96.8 F L Pulse Rate 62 Respiratory 17 Rate Blood Pressure 113/55 L Laboratory Tests 11/22/19 11/22/19 11/22/19 08:50 08:50 08:50 WBC 6.9 RBC 4.19 Hgb 12.1 Hct 36.7 D MCV 87.4 MCH 28.7 MCHC 32.9 RDW 15.1 D Plt Count 268 D MPV 8.1 D Sodium 139 Potassium 4.0 Chloride 105 Carbon Dioxide 27 Anion Gap 7 L BUN 10.8 Creatinine 0.7 Est GFR (CKD-EPI)AfAm 146.77 Est GFR (CKD-EPI)NonAf 126.64 Random Glucose 138 H Calcium 8.3 L Total Bilirubin 0.6 AST 129 H ALT 263 H Alkaline Phosphatase 105 Total Protein 7.5 Albumin 3.1 L RPR Titer Nonreactive increased liver enzymes- repeat pending a/p OUD - continue methadone detox, prn meds for symptoms. d/w at length about MAT- pt states that he would prefer not to get on MAT
[2019-11-24] MEDS ORDERED: METHADONE (DETOX) 10 MG, METHADONE (DETOX) 5 MG PO ONE (10:00)
[2019-11-24 10:12] LABS: SGOT/AST 106 U/L (15-37); SGPT/ALT 248 U/L (13-61)
[2019-11-24 10:42] VITALS: BP 126/66; PULSE 77; TEMP 96.3
[2019-11-24] MEDS: PRENATAL VITAMINS W/ FOLIC ACID TABLET (FP) PO SCH (11:01)
--- NOTE | 2019-11-24 11:29 | DS ---
[facility] Detox Discharge Summary Admission Date: 11/21/19 Discharge Date: 11/24/19 - History Present History: Cocaine Dependence, Opioid Dependence Pertinent Past History: Pt admitted for heroin detox. Pt states he needs to go home. d/w pt the need for MAT Rx with suboxone or methadone. d/w pt the increased liver enzymes and the need for f/u-. Pt does not need any meds. Has narcan kit at home - Physical Exam Results Vital Signs: Vital Signs Temperature 96.3 F L 11/24/19 08:50 Pulse Rate 77 11/24/19 08:50 Respiratory Rate 18 11/24/19 08:50 Blood Pressure 126/66 11/24/19 08:50 O2 Sat by Pulse Oximetry (%) - Treatment Hospital Course: Detox Protocol Followed, Detoxed Safely - Medication Discharge Medications: Ambulatory Orders NK [No Known Home Medication] 08/07/16 - AMA Did Patient Leave Against Medical Advice: Yes
[2019-11-25] MEDS ORDERED: METHADONE HCL 10 MG TABLET (FOR DETOX USE ONLY) PO ONE (10:00)
[2019-11-26] MEDS ORDERED: METHADONE HCL 5 MG TABLET (FOR DETOX USE ONLY) PO ONE (06:00)
== END 2019-11-24 11:22 | disposition left against medical advice (07) | DRG 770 ==
LOC: YASAS 12:59 → Y6N 15:47
PROVIDERS: ADMIT Allergy & Immunology; ATTEND Allergy & Immunology
PROC: HZ2ZZZZ Detoxification Services for Substance Abuse Treatment (ICD-10-PCS; principal; 2019-11-21)
DX: F11.23 Opioid dependence with withdrawal (principal); F14.20 Cocaine dependence, uncomplicated; F17.210 Nicotine dependence, cigarettes, uncomplicated; R74.0 Nonspecific elevation of levels of transaminase and lactic acid dehydrogenase [LDH]; R94.5 Abnormal results of liver function studies; Z91.018 Allergy to other foods
CPT/HCPCS: 36415; 80053; 84450; 84460; 85027; 86593; J0735

== ENCOUNTER 2021-07-27 13:17 | Inpatient (IN) | payer OTHER ==
[2021-07-27 14:14] VITALS: BMI 21.7
[2021-07-27] MEDS ORDERED: NICOTINE 10 MG CARTRIDGE (INHALER) IH PRN (15:22)
[2021-07-27] MEDS ORDERED: MAGNESIUM CITRATE 300 ML BOTTLE PO PRN (15:22)
[2021-07-27] MEDS ORDERED: MAG HYDROX/AL HYDROX/SIMETH 30 ML UNIT-DOSE CUP PO PRN (15:22)
[2021-07-27] MEDS ORDERED: ACETAMINOPHEN 325 MG TABLET (FP) PO PRN ×2 (15:22)
[2021-07-27] MEDS ORDERED: MENTHOL/PHENOL 1 EACH UD MM PRN (15:22)
[2021-07-27] MEDS ORDERED: METHOCARBAMOL 500 MG TABLET PO PRN (15:22)
[2021-07-27] MEDS ORDERED: NICOTINE POLACRILEX 2 MG GUM BUC PRN (15:22)
[2021-07-27] MEDS ORDERED: IBUPROFEN 400 MG TABLET (FP) PO PRN (15:22)
[2021-07-27] MEDS ORDERED: BISMUTH SUBSALICYLATE 524 MG/30 ML PO PRN (15:22)
[2021-07-27] MEDS ORDERED: methaDONE HCL 10 MG TABLET (FOR DETOX USE ONLY) PO ONE (15:22)
[2021-07-27] MEDS ORDERED: cloNIDine HCL 0.1 MG TABLET PO PRN (15:22)
[2021-07-27] MEDS ORDERED: ONDANSETRON *ODT* 4 MG TABLET SL PRN (15:22)
[2021-07-27] MEDS ORDERED: MAGNESIUM HYDROX 2400MG/30ML ORAL SUSPENSION 30 ML CUP PO PRN (15:22)
[2021-07-27] MEDS: NICOTINE 21 MG/24 HOURS TOPICAL PATCH TD SCH (17:40)
[2021-07-27] MEDS: hydrOXYzine PAMOATE 25 MG CAPSULE (FP) PO SCH ×2 (17:43→22:23)
[2021-07-27] MEDS ORDERED: MELATONIN 5 MG TABLETS PO SCH (22:00)
[2021-07-27] MEDS ORDERED: THIAMINE HCL 100 MG TABLET (FP) PO SCH (22:00)
[2021-07-28] MEDS: diazePAM 5 MG TABLET PO PRN ×2 (02:28→06:38)
[2021-07-28] MEDS: hydrOXYzine PAMOATE 25 MG CAPSULE (FP) PO SCH ×3 (06:39→14:13)
[2021-07-28] MEDS ORDERED: diazePAM 5 MG TABLET PO PRN (09:24)
[2021-07-28] MEDS ORDERED: methaDONE HCL 10 MG TABLET (FOR DETOX USE ONLY) ONE (09:37)
[2021-07-28] MEDS ORDERED: PRENATAL VITAMINS W/ FOLIC ACID TABLET (FP) PO SCH (10:00)
[2021-07-28] MEDS: NICOTINE 21 MG/24 HOURS TOPICAL PATCH TD SCH (10:04)
[2021-07-28 12:54] VITALS: BP 102/52; PULSE 76; TEMP 96.8
[2021-07-29] MEDS ORDERED: methaDONE HCL 10 MG TABLET (FOR DETOX USE ONLY) PO ONE (10:00)
[2021-07-31] MEDS ORDERED: methaDONE HCL 10 MG TABLET (FOR DETOX USE ONLY) PO ONE (10:00)
== END 2021-07-28 15:13 | disposition left against medical advice (07) | DRG 770 ==
LOC: YASAS 13:17 → Y3N 16:29
PROVIDERS: ADMIT Allergy & Immunology; ATTEND Allergy & Immunology
PROC: HZ2ZZZZ Detoxification Services for Substance Abuse Treatment (ICD-10-PCS; principal; 2021-07-27)
DX: F11.23 Opioid dependence with withdrawal (principal); F14.20 Cocaine dependence, uncomplicated; F12.20 Cannabis dependence, uncomplicated; F17.210 Nicotine dependence, cigarettes, uncomplicated; R63.4 Abnormal weight loss; Z68.21 Body mass index [BMI] 21.0-21.9, adult; Z86.19 Personal history of other infectious and parasitic diseases; Z91.018 Allergy to other foods
CPT/HCPCS: C9803; J0735; Q0162; U0003; U0005